=== PATIENT | male | born 1960 | race Caucasian/White ===

== ENCOUNTER 2018-01-04 22:21 | Emergency (ER) | payer BC ==
[2018-01-04 23:04] LABS: #Eosinphils 0.2 thou/uL (0.0-0.7); #Lymphocytes 1.3 thou/uL (1.20-3.40); #Monocytes 0.7 thou/uL (0.11-0.59); %Basophils 0.4 % (0.0-1.0); %Eosinophils 2.3 % (0.0-10.0); %Lymphocytes 17.5 % (21.0-51.0); %Monocytes 10.2 % (0.0-10.0); %Neutrophils 69.6 % (42.0-75.0); Hemoglobin 16.1 g/dL (14.0-18.0); Mean Corpuscular HGB CONC 32.7 g/dL (32.0-36.0); Mean Corpuscular Hemoglobin 31.3 pg (27.0-31.0); Mean Corpuscular Volume 95.7 fl (80.0-94.0); Mean Platelet Volume 8.3 fL (7.4-10.4); Platelet Count 147 thou/uL (130-400); RBC Distribution Width 13.2 % (11.5-14.5); Red Blood Cell (RBC) Count 5.13 mill/uL (4.70-6.10); White Blood Cell (WBC) Count 7.2 thou/uL (4.8-10.8)
[2018-01-04 23:29] LABS: ALT (SGPT) 30 U/L (8-55); AST (SGOT) 32 U/L (5-34); Albumin 4.2 g/dL (3.5-5.0); Alkaline Phosphatase 56 U/L (40-150); Anion Gap 10 mmol/L (10-20); BUN (Urea Nitrogen) 21 mg/dL (8.4-25.7); Bilirubin, Total 0.6 mg/dL (0.2-1.2); CK (CPK) 42 U/L (30-200); Calc. Creatinine Clearance 0 mL/min (70-130); Calcium 9.5 mg/dL (7.8-10.44); Carbon Dioxide 30 mmol/L (22-29); Chloride 96 mmol/L (98-107); Estimated GFR-MDRD 79; Globulin 3.4 g/dL (2.4-3.5); Glucose 116 mg/dL (70-105); Potassium 4.3 mmol/L (3.5-5.1); Protein, Total 7.6 g/dL (6.0-8.3); Sodium 132 mmol/L (136-145)
[2018-01-04 23:33] LABS: CKMB 1.6 ng/mL (0-6.6); Troponin I Less than 0.010 ng/mL (< 0.028)
== END 2018-01-05 01:10 | disposition left against medical advice (07) ==
LOC: ERS 22:21
DX: Z53.21 Procedure and treatment not carried out due to patient leaving prior to being seen by health care provider (principal)
CPT/HCPCS: 36415; 80053; 82553; 84484; 85025; 93005

== ENCOUNTER 2018-01-05 02:39 | Observation (INO) | payer BC, OTHER, SELFPAY ==
[2018-01-05] MEDS ORDERED: Nitroglycerin 2% Ointment 1 INCH/1 GM Packet ONE (02:59)
[2018-01-05] MEDS ORDERED: Aspirin 325 MG TAB ONE (02:59)
[2018-01-05] MEDS ORDERED: Morphine 10 MG/ML VIAL ONE ×2 (03:04→03:49)
[2018-01-05 03:41] LABS: CKMB 1.4 ng/mL (0-6.6); Troponin I Less than 0.010 ng/mL (< 0.028)
[2018-01-05] MEDS ORDERED: Lorazepam 2 MG/ML VIAL ONE (04:24)
[2018-01-05] MEDS ORDERED: Fentanyl 100 MCG/2 ML VIAL ONE (04:25)
[2018-01-05 06:31] LABS: Troponin I Less than 0.010 ng/mL (< 0.028)
[2018-01-05] MEDS ORDERED: Ondansetron HCl/PF 4 MG/2 ML Vial IVP PRN (07:26)
[2018-01-05] MEDS ORDERED: Diabetic Tussin 200 MG/10 ML UDCUP PO PRN (07:26)
[2018-01-05] MEDS ORDERED: Sodium Chloride 0.65% Nasal 44 ML BOT EA NARE PRN (07:26)
[2018-01-05] MEDS ORDERED: Zolpidem Tartrate 5 MG TAB PO PRN (07:26)
[2018-01-05] MEDS ORDERED: Chloraseptic Spray 180 ml Bottle PO PRN (07:26)
[2018-01-05] MEDS ORDERED: Ondansetron ODT 4 MG TAB PO PRN (07:26)
[2018-01-05] MEDS ORDERED: Loratadine 10 MG TAB PO PRN (07:26)
[2018-01-05] MEDS ORDERED: HYDROcodone/Acetaminophen 5/325 mg Tablet PO PRN (07:26)
[2018-01-05] MEDS ORDERED: Senokot 8.6 MG TAB PO PRN (07:26)
[2018-01-05] MEDS ORDERED: Acetaminophen 325 MG TAB PO PRN (07:26)
[2018-01-05] MEDS ORDERED: hydrALAZINE 20 MG/ML VIAL SLOW IVP PRN (07:26)
[2018-01-05] MEDS ORDERED: Loperamide HCl 2 MG CAP PO PRN (07:26)
[2018-01-05] MEDS ORDERED: Nitroglycerin 0.4 MG TAB (25 Tab Bottle) SL PRN (07:26)
[2018-01-05] MEDS ORDERED: Mag-Al 1200 mg/1200 mg/30 ML UDCUP PO PRN (07:26)
[2018-01-05] MEDS ORDERED: Milk Of Magnesia 30 ML UDCUP PO PRN (07:26)
[2018-01-05] MEDS ORDERED: Artificial Tears 18 DROP/0.9 ML EA EYE PRN (07:26)
[2018-01-05] MEDS ORDERED: Eucerin (Mineral Oil/Petrolatum,White) 30 gm Jar TOP PRN (07:26)
[2018-01-05 07:39] VITALS: BMI 33.5
[2018-01-05] MEDS ORDERED: Morphine 5 MG/ML SYRINGE SLOW IVP PRN (08:08)
[2018-01-05 09:14] LABS: Cardiac Risk 3.6 (Less than 4.5)
[2018-01-05] MEDS: Aspirin 325 MG TAB PO SCH (09:58)
[2018-01-05] MEDS: Famotidine 20 MG TAB PO SCH ×2 (09:58→20:07)
--- NOTE | 2018-01-05 10:02 | CT ---
PRELIMINARY REPORT/[facility]/EMERGENTY AFTER-HOURS PROCEDURE CT Angiography Chest With Intravenous Contrast CT Angiography Abdomen With Intravenous Contrast CLINICAL HISTORY: 57 years old, male; Pain; Chest pain; Type not specified; Abdominal pain; Generalized; Patient HX: Hi story provided by patient, debby presents to the ed with C/O cp, since 1999 last night. He reports he c dariel here and had an ekg done and it was ok so he lwbs. He states it has gotten worse since. He reports the pain is localized to his midsternal chest and radiates down his l arm. He denies smoking current, but states he did 20 years ago. TECHNIQUE: Axial computed tomographic angiography images of the chest and abdomen with intravenous contrast Selvzin g CT angiography protocol. CONTRAST: 100 mL of ISOVUE 370 administered intravenously. COMPARISON: No relevant prior studies available. FINDINGS: VASCULATURE: Aorta: Mild aneurysmal dilation of the infrarenal abdominal aorta measuring up to 3.2 cm. No aortic d issection. Mild atherosclerotic calcifications of the infrarenal abdominal aorta. Pulmonary arteries: Evaluation of the pulmonary arteries is limited due to suboptimal contrast opacif ication, however there is no definite evidence of pulmonary embolism. Great vessels of aortic arch: No acute findings. No dissection. No occlusion or significant stenosis. Celiac trunk and mesenteric arteries: No acute findings. No occlusion or significant stenosis. Renal arteries: No acute findings. No occlusion or significant stenosis. CHEST: Lungs: No mass. No consolidation. Bilateral lower lobe linear and ground glass dependent atelectatic opacities. Few punctate peripheral nonspecific nodules. Pleural space: No effusion. No pneumothorax. Heart: Mild cardiomegaly. Mild coronary calcifications. No significant pericardial effusion. ABDOMEN: Liver: Enlarged and possible nodular/cirrhotic liver. No obvious discrete mass. Gallbladder and bile ducts: No calcified stones. No ductal dilation. Pancreas: No acute findings. No ductal dilation. No mass. Spleen: No acute findings. No splenomegaly. Adrenals: No acute findings. No mass. Kidneys and ureters: Right lower kidney stone measuring about 0.8 cm. No hydronephrosis. Right renal cortical cyst. Unremarkable left kidney. Stomach and bowel: No evidence of bowel obstruction. Diverticulosis. Normal appendix Intraperitoneal space: No acute findings. No significant fluid collection. No free air. CHEST and ABDOMEN: Bones/joints: No acute fracture. Soft tissues: No acute findings. Lymph nodes: No significant lymphadenopathy. IMPRESSION: No aortic dissection. Mild aneurysmal dilation of the infrarenal abdominal aorta. Mild cardiomegaly. Mild coronary calcifications. Enlarged and possible nodular/cirrhotic liver; recommend clinical/lab correlation. Right renal nonobstructing calculus. Other findings above. Thank you for allowing us to participate in the care of your patient. Dictated and Authenticated by: Obie Ballesteros MD 01/05/2018 4:45 AM Central Time ([place] & [place]) FINAL REPORT CT ANGIOGRAM OF CHEST WITH IV CONTRAST AND 3D POSTPROCESSING CT ANGIOGRAM OF THE ABDOMEN WITH IV CONTRAST AND 3D POSTPROCESSING: Date: 01/05/18 FINDINGS/IMPRESSION: I agree with the preliminary report given by Robert. There is an approximately 4.0 cm cystic mass in th e right mid kidney with thin internal septation. This should be evaluated with renal ultrasound. Discussed over the telephone with ER physician, Dr. Alisia Stone, at 0747 hours on 01/05/18. CODE T. POS: [facility]
--- NOTE | 2018-01-05 11:47 | HP ---
PRIMARY CARE PHYSICIAN: Dr. Ramirez Flowers REASON FOR ADMISSION: Chest pain. HISTORY OF PRESENT ILLNESS: A 57-year-old male who came to emergency room with the complaint of ches t pain. The patient reports that chest pain started yesterday which had gotten worse last night and that made him to come to emergency room. When he came to emergency room, the patient was hypertensiv e with blood pressure of 183/100 and highest blood pressure recorded in the emergency room was 194/10 6. He was afebrile, and saturating normal. He had CT dissection, which was negative for dissection. The patient had routine cardiac enzymes in the emergency room which were negative. Subsequently, t his patient was admitted to telemetry unit for observation to rule out acute coronary syndrome. This morning when I spoke with him and he reported that he his chest pain was substernal in location, there was no associated nausea, vomiting or diaphoresis. He denied any associated shortness of lenka th. He denied any dizziness, palpitation. His intensity of pain was about 10/10. He felt some radi ation of pain to left upper extremity. This pain subsided in the emergency room after emergency room treatment. The patient never had this type of pain before and then he never had any cardiac workup in the past. He denies any calf tenderness. He denies any pleurisy. He denies any cough. He denies any flu-lik e illness. He denies any fever or chills. He denies any UTI symptoms. He denies any constipation, diarrhea, melena or hematochezia. ALLERGIES: No known drug allergy. CURRENT HOME MEDICATIONS: The patient is taking [place] 1 or 2 tablets q.6h. p.r.n. REVIEW OF SYSTEMS: The following complete review of systems was negative, unless otherwise mentioned in the HPI or below: Constitutional: Weight loss or gain, ability to conduct usual activities. Skin: Rash, itching. Eyes: Double vision, pain. ENT/Mouth: Nose bleeding, neck stiffness, pain, tenderness. Cardiovascular: Palpitations, dyspnea on exertion, orthopnea. Respiratory: Shortness of breath, wheezing, cough, hemoptysis, fever or night sweats. Gastrointestinal: Poor appetite, abdominal pain, heartburn, nausea, vomiting, constipation, or diarrhea. Genitourinary: Urgency, frequency, dysuria, nocturia. Musculoskeletal: Pain, swelling. Neurologic/Psychiatric: Anxiety, depression. Allergy/Immunologic: Skin rash, bleeding tendency. Please see my HPI for pertinent positive and negative. All other review of systems reviewed and nega tive except as mentioned in the HPI. PAST MEDICAL HISTORY: Morbid obesity with BMI 33. PAST SURGICAL HISTORY: Bilateral rotator cuff repair, bilateral bicep repair, hernia repair, lumbar fusion. PAST PSYCHIATRIC HISTORY: Reviewed and negative. SOCIAL HISTORY: The patient drinks alcohol socially twice a month. He denies any smoking. He denie s any other illicit drug abuse. FAMILY HISTORY: No strong family history of premature coronary artery disease, stroke or cancer. EMERGENCY ROOM COURSE: The patient is given fentanyl 100 mcg, Ativan 1 mg, morphine 4 mg x2, nitropa tch 1 inch, IV fluid 500 mL and aspirin 324 mg. PHYSICAL EXAMINATION: VITAL SIGNS: Currently, blood pressure 163/87, pulse 73, respiratory rate 22, temperature 98.7, satu ration 93% on 2 liter oxygen, weight 122.5 kilograms. GENERAL: The patient is currently alert, awake, no obvious acute distress, hypertensive. HEENT: Head; normocephalic, atraumatic. Eyes: Pupils round, reactive to light. Extraocular muscle intact. ENT: Oropharynx within normal limits. Moist mucous membranes, no oral lesion, no pharynge al erythema, no exudate. NECK: Supple, no JVD, no thyromegaly, no carotid bruit, no jugular venous distention. LUNGS: Clear to auscultation without any rhonchi or rales. CARDIAC: S1, S2 regular. No murmur, no gallop, no rub. ABDOMEN: Soft, bowel sounds present, nontender, nondistended. No organomegaly, no mass, no suprapub ic tenderness. BACK: Unremarkable, no CVA tenderness. EXTREMITIES: Upper extremities; passive movement of all joints are normal. Lower extremities: No c joseph tenderness, no edema. Good distal pulsation. SKIN: No skin rash. HEMATOLOGICAL: No lymphadenopathy. PSYCHIATRIC: Normal affect. NEUROLOGIC: The patient is alert, oriented x3. Cranial nerves II-XII intact. No focal neurological deficit noted. SIGNIFICANT LABS: EKG based on my review reveals normal sinus rhythm within normal limits. No ST-T changes. CT dissection protocol showing mild aneurysmal dilatation of infrarenal abdominal aorta, mi ld cardiomegaly, mild coronary calcification, enlarged and possible nodular cirrhotic liver and right renal nonobstructive calculus. CBC: WBC 7.2, hemoglobin 16.1, platelet 147. BMP: Sodium 132, potassium 4.3, chloride 96, carbon d ioxide 30, anion gap 10, BUN 21, creatinine 0.97, glucose 116, calcium 9.5. LFT: AST 32, ALT 30, al kaline phosphatase 56, albumin 4.2. Cardiac enzymes negative x3. Lipase 20. Triglyceride 54, cholesterol 166, LDL 109, HDL 46. ASSESSMENT AND PLAN: 1. Acute chest pain. The patient's chest pain description is atypical. I am suspecting musculoskel etal etiology. This patient has negative cardiac enzymes x3 and EKG is also unremarkable. The patie nt is concerned about cardiac etiology and he prefers to go for stress test and for that reason, we w ill order exercise Cardiolite stress test for diagnostic reason. If stress test is negative, then we will consider discharging him home later on today. Meanwhile for better blood pressure control we w ill continue with nitro patch and will control his pain with pain medication. We will also continue aspirin. Lipid profile checked which is normal. Healthy lifestyle measures discussed with the pari browne. 2. Hypertension without previous history of hypertension. We will monitor patient's blood pressure while in hospital and if blood pressure remains high, then we will consider prescribing lisinopril 5 mg twice daily, and metoprolol 25 mg p.o. twice daily upon discharge. The patient is instructed to k eep blood pressure recording and see primary care physician for further adjustment of blood pressure medication. 3. Morbid obesity with BMI 33. Dietary education given. Healthy lifestyle measures discussed with the patient. 4. Chronic pain. The patient is taking [place] and patient is instructed to continue to follow up [facility] on an as needed basis. 5. Abnormal CT finding. The patient does have a mild aneurysmal dilatation of infrarenal abdominal aorta, mild cardiomegaly, mild coronary calcification, and some possible cirrhotic liver and right re nal nonobstructing calculus and for that reason, the patient is instructed to follow up with primary care physician for outpatient followup. 6. Deep venous thrombosis prophylaxis not needed because we are expecting discharge in 24 hours. 7. Gastrointestinal prophylaxis, Pepcid 20 mg p.o. b.i.d. 8. Code status: The patient is full code. Disposition plan based on stress test result, likely within 24 hours and may be possibly later on tod ay.
[2018-01-05] MEDS: Nitroglycerin 2% Ointment 1 INCH/1 GM Packet TOP SCH ×2 (13:08→20:09)
[2018-01-05] MEDS ORDERED: Colchicine 0.6 MG TAB PO SCH (14:45)
[2018-01-05] MEDS ORDERED: Indomethacin 25 mg Capsule PO SCH (14:45)
[2018-01-05] MEDS ORDERED: ISOVUE-370 76%-LOCM 1 ML ONE (16:21)
--- NOTE | 2018-01-05 19:36 | CON ---
DATE OF CONSULTATION: 01/05/2018 CARDIOLOGY CONSULTATION REASON FOR CONSULTATION: Chest pain. HISTORY OF PRESENT ILLNESS: Mr. Chrsitensen is a very pleasant 57-year-old white gentleman who comes t o the hospital for evaluation of chest pain. It started last night. He noticed that when he would t justin a deep breath, he would have pain on both lower parts of the chest. He also noted that when he w ould lay on his back, the pain would be worse and he would be very uncomfortable and he would sit up and the pain would get better. He actually came to the ER last night secondary to this and when he w as in the ER, he was sitting down and he felt so much better that he thought that his episode was don e, so he went home, he laid in bed and he continued to have the pain once he laid in bed, so he start ed to come back in. He was admitted. He was ruled out with negative troponins and his EKG was actua lly unremarkable. He was scheduled to have a stress test earlier today. When he got to the stress l ab, a repeat EKG, right before the stress which is what we usually do showed that he had diffuse ST e levations and OK depression suggestive of an acute pericarditis. Secondary to this, the stress test was canceled and Cardiology is being consulted for further evaluation. In talking with him, he tells me that it hurts when he takes a deep breath and when he lays on his back, it gets better when he si ts up when he takes shallow breaths. He is actually able to take deep breaths once he is sitting up or leaning forward. He denies any shortness of breath otherwise. PAST MEDICAL HISTORY: Obesity. PAST SURGICAL HISTORY: 1. Bilateral rotator cuff repair. 2. Bilateral biceps repair. 3. Hernia repair. 4. Lumbar fusion. SOCIAL HISTORY: Social alcohol use. No tobacco or drugs. FAMILY HISTORY: No premature coronary artery disease. OUTPATIENT MEDICATIONS: Vicodin p.r.n. pain. ALLERGIES: No known drug allergies. REVIEW OF SYSTEMS: A 12 point review of systems was done and is all negative unless stated in the hi story of present illness. PHYSICAL EXAMINATION: VITAL SIGNS: Temperature 99.2, pulse 74, respiration rate 24, satting 92% on 2 liters, 98% on room a ir now. Blood pressure 155/75. GENERAL: Awake, alert, oriented x3, in no distress. HEENT: Normocephalic, atraumatic. NECK: Supple. LUNGS: Lungs are clear. CARDIOVASCULAR: S1, S2 with no S3 or S4. There is a 2-component rub throughout the left precordium. ABDOMEN: Soft, positive bowel sounds. EXTREMITIES: No edema. SKIN: Warm and dry. LABORATORY WORK: Reviewed. CBC is unremarkable. Chemistry is unremarkable. Sodium 132, potassium is 4.3, chloride 96, carbon dioxide of 30. Normal BUN, creatinine and GFR. Glucose of 116. Troponi n is undetectable x4, albumin of 4.2, lipase of 20, triglycerides of 54, cholesterol total of 166, LD L of 109, HDL of 46. His CRP was 7.2. ESR was normal. EKG in the ER as well as this morning was reviewed with no changes. EKG right before the stress that showed diffuse ST elevations with OK depressions consistent with a diagnosis of acute pericarditis t hat would be a contraindication for stress test. CT per dissection protocol was reviewed. He has a cystic mass in the right mid kidney with thin inte rnal septation. Further evaluation with his renal ultrasound was recommended. There was no aortic d issection. There is mild aneurysmal dilatation of the infrarenal abdominal aorta. There is mild car diomegaly and mild coronary calcifications and large possibly nodular cirrhotic liver. Right renal n onobstructive calculus. ASSESSMENT AND PLAN: 1. Chest pain: Possibly acute pericarditis. He has got elevated inflammatory markers as well as ty pical signs and symptoms of acute pericarditis with EKG changes. At this time, I will treat with ant i-inflammatories. We will start indomethacin and colchicine. We will give first dose now and will d o the evening dose and then start b.i.d. from then on. I would expect him to have a better resolutio n of his symptoms with this. 2. Coronary artery disease: He does have coronary calcifications suggestive of coronary artery dise ase. He will need risk stratification with a stress test or even a heart catheterization if his symp toms do not improve with anti-inflammatory drugs. If his symptoms improve with this in fact pericard itis, we will still need stratification as an outpatient later on. 3. Infrarenal abdominal aortic aneurysm. 4. Cystic lesion on the kidney. 5. Possible liver cirrhosis. We would recommend GI consultation for this. 6. Nonobstructive renal calculus. PLAN: 1. As above. Colchicine and indomethacin to see if his symptoms improve. 2. Echocardiogram to evaluate for valvular structures and LV function. 3. Please keep in the hospital overnight, we will decide on discharge tomorrow depending on clinical evolution. Thank you for letting us to participate in the care of your patient. We will follow.
[2018-01-05] MEDS: Colchicine 0.6 MG TAB PO SCH (20:07)
[2018-01-05] MEDS: Indomethacin 25 mg Capsule PO SCH (20:07)
[2018-01-06] MEDS: Nitroglycerin 2% Ointment 1 INCH/1 GM Packet TOP SCH (05:46)
[2018-01-06] MEDS: Colchicine 0.6 MG TAB PO SCH (08:30)
[2018-01-06] MEDS: Aspirin 325 MG TAB PO SCH (08:30)
[2018-01-06] MEDS: Indomethacin 25 mg Capsule PO SCH (08:30)
[2018-01-06] MEDS: Famotidine 20 MG TAB PO SCH (08:30)
--- NOTE | 2018-01-06 10:55 | DIS ---
DATE OF ADMISSION: 01/05/2018 DATE OF DISCHARGE: 01/06/2018 PRIMARY CARE PHYSICIAN: DE Taryn. DISCHARGE DISPOSITION: Home. PRIMARY DISCHARGE DIAGNOSES: 1. Acute pericarditis. 2. Hypertension. SECONDARY DISCHARGE DIAGNOSES: Obesity with body mass index of 33, chronic low back pain. PRIMARY PROCEDURE/OPERATION: None. RADIOLOGICAL INVESTIGATION: CT dissection protocol showed multiple findings including nodular liver consistent with cirrhosis, nonobstructive right nephrolithiasis, cardiomegaly and coronary calcificat ion and an infrarenal abdominal aortic aneurysm. Echocardiography will be done before discharge. SIGNIFICANT LABORATORY: ESR 26. CRP 7.20. LDL 109. Cardiac enzymes negative x3. Lipase 20. DISCHARGE MEDICATIONS: Aspirin 81 mg p.o. daily, colchicine 0.6 mg p.o. b.i.d., Pepcid 20 mg p.o. b. i.d., [place] 10 one tablet q.6 hourly p.r.n., indomethacin 25 mg p.o. b.i.d., Prinzide 10/12.5 one tab let p.o. daily. CONTRAINDICATIONS: None. CODE STATUS: FULL CODE. INPATIENT CONSULTANTS: Dr. Swanson was consulted while in the hospital. TEST RESULTS PENDING ON DISCHARGE: Echocardiography. DISCHARGE PLAN: Post hospital, the patient will follow up with Dr. Swanson and Dr. Butch Guzmán as instructed. HOSPITAL COURSE: A 57-year-old male with the above-mentioned medical problem who was admitted by me yesterday. Please see my HPI for further detail. This patient was having ongoing chest pain which w as related with pleuritic in nature. His EKG changes were also consistent with pericarditis and clin ical presentation was also consistent with pericarditis. He had CT dissection protocol, which showed multiple incidental findings including infrarenal abdominal aortic aneurysm, nodular liver, and nono bstructive right nephrolithiasis. The patient was admitted to the hospital for observation. We cons ulted Cardiology and Cardiology agreed with the acute pericarditis diagnosis. Initially, we decided to do a stress test, but Dr. Swanson recommended to do as an outpatient basis for risk stratification. His cardiac enzymes were negative and with colchicine and indomethacin, the patient became complete ly chest pain free. While in hospital, we will found him with hypertension and that is why we prescr ibed Prinzide therapy upon discharge as well. He is instructed to follow with primary care physician for abnormal CT finding as well as patient trey l follow up with Dr. Swanson for risk stratification with a stress test as an outpatient basis. The patient is seen and examined at bedside today. His examination is completely normal. All new me dication prescriptions sent to his pharmacy. The patient is medically stable for discharge today.
[2018-01-06 13:31] VITALS: BP 132/74; TEMP 97.6
--- NOTE | 2018-01-06 16:26 | PDOC.CTH ---
Cardiology Progress Note - Subjective He is doing much better. Since taking colchicine and Indomethacine he has been chest pain free. - Objective Vital Signs Temp Pulse Resp BP BP Pulse Ox 01/06/18 12:20 97.6 F 54 L 20 132/74 98 01/06/18 08:00 97.5 F L 57 L 18 01/06/18 07:38 97.5 F L 57 L 18 151/82 H 99 01/06/18 04:32 98.4 F 57 L 16 149/83 H 96 01/05/18 01/06/18 01/07/18 06:59 06:59 06:59 Intake Total 1890 1410 Output Total 550 Balance 1340 1410 - Physical Examination General/Neuro: alert & oriented x3, NAD Neck: no JVD present Lungs: CTA, unlabored respirations Heart: RRR Abdomen: NT/ND Extremities: other: (no edema.) - Telemetry Telemetry Rhythm: NSR - Labs Troponin/CKMB CK-MB (CK-2) 1.4 ng/mL (0-6.6) 01/05/18 02:57 Troponin I 0.010 ng/mL (< 0.028) 01/05/18 08:37 - Assessment/Plan 1. Acute pericarditis. PLAN: - Continue colchicine and indometahcine - Will follow in clinic in 1 month. - January discharge after echo done.
== END 2018-01-06 14:31 | disposition home or self-care (01) ==
LOC: ERS 02:39 → 2SW 07:30
PROVIDERS: ADMIT Internal Medicine; ATTEND Internal Medicine
DX: I30.9 Acute pericarditis, unspecified (principal); I10 Essential (primary) hypertension; G89.29 Other chronic pain; M54.5 Low back pain; I71.4 Abdominal aortic aneurysm, without rupture; N20.0 Calculus of kidney; Q61.9 Cystic kidney disease, unspecified; I25.10 Atherosclerotic heart disease of native coronary artery without angina pectoris; E66.01 Morbid (severe) obesity due to excess calories; Z68.33 Body mass index [BMI] 33.0-33.9, adult
CPT/HCPCS: 36415; 71275; 80053; 80061; 82553; 83690; 84484; 85025; 85652; 86140; 93005; 93306; 96361; 96374; 96375; 96376; A4216; G0378; J2060; J2270; J3010

== ENCOUNTER 2022-04-07 21:52 | Emergency (ER) | payer BC, SELFPAY ==
[2022-04-07 22:46] LABS: #Eosinphils 0.3 thou/uL (0.0-0.7); #Lymphocytes 1.9 thou/uL (1.20-3.40); #Monocytes 0.7 thou/uL (0.11-0.59); %Monocytes 8.4 % (0.0-10.0); %Neutrophils 63.6 % (42.0-75.0); Mean Corpuscular HGB CONC 30.4 g/dL (32.0-36.0); Mean Corpuscular Hemoglobin 25.6 pg (27.0-31.0); Mean Corpuscular Volume 84.4 fL (78.0-98.0); Mean Platelet Volume 11.3 fL (7.4-10.4); Platelet Count 145 thou/uL (130-400); RBC Distribution Width 19.3 % (11.5-14.5); Red Blood Cell (RBC) Count 6.24 mill/uL (4.70-6.10); White Blood Cell (WBC) Count 7.8 thou/uL (4.8-10.8)
[2022-04-08 00:21] LABS: ALT (SGPT) 43 U/L (8-55); AST (SGOT) 32 U/L (5-34); Albumin 3.9 g/dL (3.4-4.8); Alkaline Phosphatase 57 U/L (40-110); Anion Gap 14 mmol/L (10-20); BUN (Urea Nitrogen) 14 mg/dL (8.4-25.7); Bilirubin, Total 0.6 mg/dL (0.2-1.2); Calc. Creatinine Clearance 0 mL/min (70-130); Calcium 9.2 mg/dL (7.8-10.44); Carbon Dioxide 21 mmol/L (23-31); Chloride 105 mmol/L (98-107); Estimated GFR 85; Globulin 3.4 g/dL (2.4-3.5); Glucose 86 mg/dL (80-115); Lipase 39 U/L (8-78); Potassium 3.8 mmol/L (3.5-5.1); Protein, Total 7.3 g/dL (5.8-8.1); Sodium 136 mmol/L (136-145)
[2022-04-08 01:55] LABS: Troponin I Less than 0.010 ng/mL (< 0.028)
== END 2022-04-08 02:08 | disposition home or self-care (01) ==
LOC: ERS 21:52
DX: R07.89 Other chest pain (principal); R10.13 Epigastric pain; I11.0 Hypertensive heart disease with heart failure; I50.9 Heart failure, unspecified
CPT/HCPCS: 36415; 71045; 80053; 83690; 83880; 84484; 85025; 93005